=== PATIENT | female | born 1995 | race Caucasian/White ===

== ENCOUNTER 2017-02-01 11:58 | Emergency (ER) | payer MEDICAID ==
[2017-02-01 12:05] VITALS: BP 129/82
[2017-02-01] MEDS ORDERED: DEXAMETHASONE 10 MG/ML VIAL PO STA (12:07)
[2017-02-01] MEDS ORDERED: IBUPROFEN 600 MG TABLET PO STA (12:07)
[2017-02-01] MEDS ORDERED: HYDROcod/ACETAM 5/325 MG TABLET PO STA (12:07)
--- NOTE | 2017-02-01 12:09 | ED Physician Documentation ---
PD HPI HEENT - Stated complaint Stated Complaint: SORE THROAT/CONGESTION - Chief complaint Chief Complaint: Heent - History obtained from History obtained from: Patient, Family - History of Present Illness Timing - onset: Other (Sore throat since yesterday, started on the left but now both sides. No measured fevers. No significant cough or runny nose. She tried Aleve yesterday which was helpful. No possibility of . No health problems.) Review of Systems Constitutional: reports: Chills, Fatigue. denies: Fever Nose: denies: Rhinorrhea / runny nose, Congestion Throat: reports: Sore throat Respiratory: denies: Dyspnea, Cough GI: denies: Abdominal Pain PD PAST MEDICAL HISTORY - Past Medical History Past Medical History: No - Present Medications Home Medications: Ambulatory Orders Medication Instructions Recorded Confirmed Amoxicillin 10 ml PO TID 10 Days ml 02/01/17 Hydrocodone/Acetaminophen 10 - 15 ml PO Q4H PRN #150 ml 02/01/17 [Hydrocodon-Acetamin 7.5-325/15] Ibuprofen [Children's Ibuprofen] 20 ml PO Q6H PRN #400 ml 02/01/17 prednisoLONE [Prednisolone] 10 ml PO DAILY #50 ml 02/01/17 - Allergies Allergies/Adverse Reactions: Allergies Allergy/AdvReac Type Severity Reaction Status Date / Time No Known Drug Allergies Allergy Verified 02/01/17 12:03 - Social History Does the pt smoke?: No Smoking Status: Never smoker PD ED PE NORMAL - Vitals Vital signs reviewed: Yes - General General: Alert and oriented X 3, Well developed/nourished - HEENT HEENT: Ears normal, Other (Lg red tonsils, symmetric) - Neck Neck: Supple, no meningeal sign, Other (mod ant LAD) - Derm Derm: No rash - Neuro Neuro: Alert and oriented X 3, Normal speech - Psych Psych: Normal mood, Normal affect Results - Vitals Vitals: Vital Signs - 24 hr 02/01/17 12:03 Temperature 36.9 C Heart Rate 112 H Respiratory 18 Rate Blood Pressure 129/82 H O2 Saturation 98 Oxygen O2 Source Room air - Labs Labs: Laboratory Tests 02/01/17 12:05 Group A Strep Rapid POSITIVE H Departure - Departure Disposition: Home, Self Care Clinical Impression: Strep pharyngitis Condition: Good Record reviewed to determine appropriate education?: Yes Instructions: ED Strep Pharyngitis Conf Prescriptions: Amoxicillin 10 ml PO TID 10 Days ml Hydrocodone/Acetaminophen [Hydrocodon-Acetamin 7.5-325/15] 10 - 15 ml PO Q4H PRN #150 ml PRN Reason: Pain Ibuprofen [Children's Ibuprofen] 20 ml PO Q6H PRN #400 ml PRN Reason: Pain prednisoLONE [Prednisolone] 10 ml PO DAILY #50 ml Comments: Call your doctor to arrange a follow-up appointment, make the next available appointment. In the interim, return anytime if worse or if new symptoms develop. Your blood pressure was elevated today on check into the emergency department. This does not mean that you have hypertension, it is a common phenomenon to come to the emergency department and have elevated blood pressure. I recommend that you see your primary care physician within the week to have it rechecked when you are feeling better.
[2017-02-01] MEDS ORDERED: CHERRY SYRUP 10 ML UDC PO ONE (12:18)
[2017-02-01 12:26] LABS: RAPID STREP SCREEN REAGENT QC YELLOW (YELLOW)
== END 2017-02-01 12:46 | disposition home or self-care (01) ==
LOC: ED 11:58
DX: J02.0 Streptococcal pharyngitis (principal); R03.0 Elevated blood-pressure reading, without diagnosis of hypertension
CPT/HCPCS: 87430; 99283; A9270

== ENCOUNTER 2023-01-21 08:57 | Emergency (ER) | payer MEDICAID ==
[2023-01-21] MEDS ORDERED: CHERRY SYRUP 10 ML UDC PO ONE (09:31)
[2023-01-21] MEDS ORDERED: DEXAMETHASONE 10 MG/ML VIAL PO STA (09:31)
--- NOTE | 2023-01-21 09:33 | ED Physician Documentation ---
PD HPI HEENT - Stated complaint Stated Complaint: RT EAR DRAINAGE/PX - Chief complaint Chief Complaint: Heent - History obtained from History obtained from: Patient - History of Present Illness Timing - onset: How many days ago (4) Timing - duration: Days (4) Timing - details: Gradual onset, Still present Location: Right ear, Throat Improves: Medication Worsens: Swalllowing Associated symptoms: Congestion, Rhinorrhea, Headache, Cough Similar symptoms before: Diagnosis (ear infection) Recently seen: Not recently seen - Additional information Additional information: Previously well 27-year-old Mayte Munguia developed a sore throat about 4 days ago the sore throat seem to improve and she developed pressure and pain in her right ear along with loss of hearing. She has had a slight cough associated with this. Review of Systems Constitutional: reports: Fatigue. denies: Fever Eyes: denies: Decreased vision Ears: reports: Ear pain Nose: reports: Rhinorrhea / runny nose, Congestion, Sinus pressure / pain Throat: reports: Sore throat Cardiac: denies: Chest pain / pressure, Palpitations Respiratory: reports: Cough. denies: Dyspnea GI: denies: Vomiting, Diarrhea PD PAST MEDICAL HISTORY - Past Surgical History Past Surgical History: No - Present Medications Home Medications: Ambulatory Orders Medication Instructions Recorded Confirmed Amoxicillin 10 ml PO TID 10 Days ml 02/01/17 Hydrocodone/Acetaminophen 10 - 15 ml PO Q4H PRN #150 ml 02/01/17 [Hydrocodon-Acetamin 7.5-325/15] Ibuprofen [Children's Ibuprofen] 20 ml PO Q6H PRN #400 ml 02/01/17 prednisoLONE [Prednisolone] 10 ml PO DAILY #50 ml 02/01/17 Amox/Clav 875/125 [Augmentin] 1 each PO Q12H #20 tablet 01/21/23 - Allergies Allergies/Adverse Reactions: Allergies Allergy/AdvReac Type Severity Reaction Status Date / Time No Known Drug Allergies Allergy Verified 02/01/17 12:03 - Social History Does the pt smoke?: No Smoking Status: Never smoker PD ED PE NORMAL - Vitals Vital signs reviewed: Yes (Tachycardic and hypertensive) - General General: Alert and oriented X 3, No acute distress, Well developed/nourished - HEENT HEENT: Atraumatic, PERRL, EOMI, Other (Left TM is entirely clear the right is angry erythema especially in the attic with distortion of the TM. The pharynx shows marked swelling along the right tonsillar pillar.) - Neck Neck: Supple, no meningeal sign - Cardiac Cardiac: RRR, No murmur - Respiratory Respiratory: No respiratory distress, Clear bilaterally - Abdomen Abdomen: Soft, Non tender - Back Back: No CVA TTP, No spinal TTP - Derm Derm: Normal color, Warm and dry, No rash - Extremities Extremities: No deformity, No edema - Neuro Neuro: Alert and oriented X 3, manufacturing baker 2-12 intact, No motor deficit, No sensory deficit, Normal speech Eye Opening: Spontaneous Motor: Obeys Commands Verbal: Oriented GCS Score: 15 - Psych Psych: Normal mood, Normal affect Results - Vitals Vitals: Vital Signs - 24 hr 01/21/23 09:10 Temperature 36.8 C Heart Rate 104 H Respiratory 17 Rate Blood Pressure 145/76 H O2 Saturation 99 Oxygen O2 Source Room air PD Medical Decision Making - ED course Complexity details: considered differential, d/w patient ED course: 27-year-old female with a prior history of strep pharyngitis develops a pharyngitis on 1 side of her pharynx and subsequently developed otitis. The otitis looks angry and we will treat this aggressively. She does have a lot of pressure on the side of her head and some swelling to the right tonsillar pillar and she is given a dose of dexamethasone. We will start her on a course of Augmentin. Departure - Departure Disposition: 01 Home, Self Care Clinical Impression: Otitis media Qualifiers: Otitis media type: suppurative Chronicity: acute Laterality: right Recurrence: not specified as recurrent Spontaneous tympanic membrane rupture: without spontaneous rupture Qualified Code(s): H66.001 - Acute suppurative otitis media without spontaneous rupture of ear drum, right ear Condition: Stable Instructions: ED Otitis Media Acute Adult Follow-Up: [facility] [place] [Provider Group] Prescriptions: Amox/Clav 875/125 [Augmentin] 1 each PO Q12H #20 tablet Comments: Mayte, today it looks like you have an angry infection in your right middle ear. We have given you a dose of dexamethasone which we hope will open the eustachian tube so that this will be able to drain and I have E scribed some Augmentin to the [facility] in [place]. I have given you a clinic name for fo llow-up as well. Our expectations are improvement and resolution of your symptoms over the week.
[2023-01-21 10:12] VITALS: BP 138/80; O2SAT 98
== END 2023-01-21 09:45 | disposition home or self-care (01) ==
LOC: ED 08:57
DX: H66.001 Acute suppurative otitis media without spontaneous rupture of ear drum, right ear (principal)
CPT/HCPCS: 99282; 99283